=== PATIENT | female | born 1990 | race Caucasian/White ===

== ENCOUNTER 2018-05-19 08:00 | Inpatient (IN) | payer MEDICARE, OTHER ==
[2018-05-13 14:55] VITALS: BMI 47.2
--- NOTE | 2018-05-19 09:10 | HP ---
Admitting History and Physical - Admission Chief Complaint: Morbid obesity History of Present Illness: Morbid obesity History Source: Patient Limitations to Obtaining History: No Limitations - Past Medical History ...LMP Comment: 05/07/18 ...: No - Past Surgical History Past Surgical History: Yes: Cholecystectomy - Smoking History Smoking history: Never smoked Have you smoked in the past 12 months: No - Alcohol/Substance Use Hx Alcohol Use: No Home Medications - Allergies Allergies/Adverse Reactions: Allergies Allergy/AdvReac Type Severity Reaction Status Date / Time No Known Allergies Allergy Verified 05/19/18 08:53 - Home Medications Home Medications: Ambulatory Orders Albuterol Sulfate Inhaler - [Ventolin Hfa Inhaler -] 2 inh PO Q6H PRN 05/13/18 Famotidine [Pepcid] 20 mg PO BID #60 tablet 05/19/18 Oxycodone HCl/Acetaminophen [Percocet 5-325 mg Tablet] 1 - 2 tab PO Q6H #28 tab MDD 4 05/19/18 Family Disease History - Family Disease History Family History: Denies Review of Systems - Review of Systems Constitutional: denies: Chills, Fever HENT: reports: No Symptoms Neck: reports: No Symptoms Cardiovascular: reports: No Symptoms Respiratory: reports: No Symptoms Gastrointestinal: reports: No Symptoms Neurological: reports: No Symptoms Pain Intensity: 0 Physical Examination Vital Signs: Vital Signs Temperature 97.6 F 05/19/18 08:28 Pulse Rate 78 05/19/18 08:28 Respiratory Rate 16 05/19/18 08:28 Blood Pressure 120/67 05/19/18 08:28 O2 Sat by Pulse Oximetry (%) 97 05/19/18 08:33 Constitutional: Yes: Calm HENT: Yes: WNL Neck: Yes: WNL Cardiovascular: Yes: WNL Respiratory: Yes: Regular Gastrointestinal: Yes: Soft, Abdomen, Obese. No: Tenderness Neurological: Yes: Alert, Oriented Problem List - Problems (1) Morbid obesity due to excess calories Code(s): E66.01 - MORBID (SEVERE) OBESITY DUE TO EXCESS CALORIES (2) BMI 45.0-49.9, adult Code(s): Z68.42 - BODY MASS INDEX (BMI) 45.0-49.9, ADULT Assessment/Plan Laparoscopic possible open vertical sleeve gastrectomy
[2018-05-19] MEDS ORDERED: ACETAMINOPHEN INJECTION 100 ML IVPB ONE (09:18)
[2018-05-19] MEDS ORDERED: MIDAZOLAM HCL 2 MG/2 ML SINGLE DOSE VIAL ONE (09:18)
[2018-05-19] MEDS ORDERED: PROPOFOL 20 ML ONE ×2 (09:23→09:24)
[2018-05-19] MEDS ORDERED: ROCURONIUM BROMIDE 50 MG/5 ML VIAL ONE (09:23)
[2018-05-19] MEDS ORDERED: SUCCINYLCHOLINE CHLORIDE 200 MG/10 ML VIAL ONE (09:23)
[2018-05-19] MEDS ORDERED: ceFAZolin SODIUM 1 GM VIAL ONE (09:47)
[2018-05-19] MEDS ORDERED: DEXAMETHASONE SOD PHOSPHATE 4 MG/1 ML VIAL ONE (09:47)
[2018-05-19] MEDS ORDERED: ONDANSETRON 4 MG/2 ML VIAL ONE (09:47)
[2018-05-19] MEDS ORDERED: NEOSTIGMINE METHYLSULFATE 0.5 MG/ML - 10 ML MDV ONE (10:56)
[2018-05-19] MEDS ORDERED: GLYCOPYRROLATE 0.2 MG/1 ML VIAL ONE ×2 (10:56)
[2018-05-19] MEDS ORDERED: ONDANSETRON 4 MG/2 ML VIAL IVPUSH PRN (10:56)
[2018-05-19] MEDS ORDERED: BUPIVACAINE HCL/PF 2.5 MG/ML - 30 ML VIAL IJ ONE (10:57)
[2018-05-19] MEDS ORDERED: HYDROmorphone HCL/PF 1 MG/ML AMP ONE (11:00)
[2018-05-19] MEDS ORDERED: LACTATED RINGERS SOLUTION 1,000 ML IV SCH (11:00)
[2018-05-19] MEDS ORDERED: HYDROmorphone HCL CARPU-JECT 2 MG/1 ML DISP.SYRIN IVPB PRN (11:09)
[2018-05-19] MEDS ORDERED: ALBUTEROL SO4 8 GM HFA INHALER IH PRN (11:13)
--- NOTE | 2018-05-19 11:13 | OP ---
Operative Note - Note: Operative Date: 05/19/18 Pre-Operative Diagnosis: Morbid obesity. BMI 47.3 Operation: Laparoscopic vertical sleeve gastrectomy. Laparoscopic wedge liver biopsy Post-Operative Diagnosis: Other (Same as well as hepatomegaly) Surgeon: Jorge Luis Coffey [employer] Controls Assembler: Jarek Riddle Anesthesia: General Specimens Removed: Greater curvature of stomach. Liver biopsy Estimated Blood Loss (mls): 30 Drains & Tubes with Location: 36 fr Bougie Operative Report Dictated: Yes
[2018-05-19] MEDS ORDERED: ALBUTEROL SO4 0.083% IH SOL 2.5 MG/3 ML VIAL.NEB. NEB ONE (11:24)
[2018-05-19] MEDS ORDERED: FAMOTIDINE 20 MG/50 ML IVPB 20 MG/50 ML MG IVPB ONE (11:44)
[2018-05-19] MEDS ORDERED: METOCLOPRAMIDE HCL INJECTION 10 MG/2 ML VIAL IVPUSH ONE (11:50)
[2018-05-19] MEDS ORDERED: ALBUTEROL SO4 8 GM HFA INHALER IH ONE (11:55)
[2018-05-19] MEDS ORDERED: FAMOTIDINE 20 MG PREMIXED IVPB IVPB ONE (11:58)
[2018-05-19 12:06] LABS: HEMATOCRIT 34.4 % (32.4-45.2); HEMOGLOBIN 11.3 GM/dl (10.7-15.3); MCHC 32.8 g/dl (32.0-36.0); MEAN CELL VOLUME 88.6 fl (80-96); MEAN PLT VOLUME 9.6 fl (7.5-11.1); PLATELET COUNT 307 K/MM3 (134-434); RBC 3.88 M/mm3 (3.60-5.2); RDW 13.3 % (11.6-15.6); WHITE BLOOD COUNT 12.6 K/mm3 (4.0-10.8)
[2018-05-19 12:25] LABS: ALBUMIN 3.5 g/dl (3.4-5.0); ALK PHOS 66 U/L (45-117); ANION GAP 11 MMOL/L (8-16); BILIRUBIN,TOTAL 0.5 mg/dl (0.2-1); BLOOD UREA NITROGEN 11 mg/dl (7-18); CALCIUM 8.7 mg/dl (8.5-10); CHLORIDE 102 mmol/L (98-107); CO2 22 mmol/L (21-32); CREATININE 0.6 mg/dl (0.55-1.3); GLUCOSE,RANDOM 111 mg/dl (74-106); POTASSIUM 3.9 mmol/L (3.5-5.1); SGOT/AST 27 U/L (15-37); SGPT/ALT 28 U/L (13-61); SODIUM 135 mmol/L (136-145); TOT PROT 6.7 g/dl (6.4-8.2)
[2018-05-19] MEDS: SODIUM CHLORIDE 1,000 ML IV SCH (13:00)
[2018-05-19] MEDS ORDERED: HYDROmorphone HCL CARPU-JECT 1 MG/1 ML DISP.SYRIN IVPB PRN (14:45)
[2018-05-19] MEDS ORDERED: ACETAMINOPHEN 1000 MG/100 ML VIAL (NON FORMULARY) IVPB PRN (17:00)
[2018-05-19] MEDS: METOCLOPRAMIDE HCL INJECTION 10 MG/2 ML VIAL IVPUSH SCH ×3 (17:00→23:44)
[2018-05-19] MEDS: ACETAMINOPHEN 1000 MG/100 ML VIAL (NON FORMULARY) IVPB SCH ×2 (18:00→23:44)
[2018-05-19] MEDS: ONDANSETRON 4 MG/2 ML VIAL IVPUSH SCH ×3 (19:00→22:02)
--- NOTE | 2018-05-19 20:32 | SPEC ---
DATE OF OPERATION: 05/19/2018 SURGEON: Jorge Luis Coffey MD VP PLATFORMS: Jarek Riddle MD PREOPERATIVE DIAGNOSES: 1. Morbid obesity. 2. Body mass index 47.3. POSTOPERATIVE DIAGNOSES: 1. Morbid obesity. 2. Body mass index 47.3. 3. Hepatomegaly. PROCEDURES: 1. Diagnostic laparoscopy. 2. Laparoscopic vertical sleeve gastrectomy. 3. Laparoscopic wedge liver biopsy. SPECIMENS: 1. Greater curvature of the stomach. 2. Liver biopsy. ESTIMATED BLOOD LOSS: 30 mL. DRAINS: None. ANESTHESIA: GET. BOUGIE SIZE: 36-Irish. REASON FOR PROCEDURE: This is a 28-year-old female who presents to the office for weight loss options. After describing different options, she decided to proceed with a laparoscopic, possible open, vertical sleeve gastrectomy. RISKS AND BENEFITS: After describing the different options for weight loss management, the patient decided to proceed with a laparoscopic, possible open vertical sleeve gastrectomy. The patient was seen by the respective subspecialties and cleared for surgery. The risks and benefits of the procedure were explained. These included bleeding, infection, hernia, WA, DVT, PE, injury to surrounding structures including the liver, colon, bowel, spleen, esophagus, vessel injury, nerve injury, weight regain, gastric leak, staple line leak, sleeve leak, obstruction, vitamin deficiency, hair loss and as some of the possible complications. The patient understood and signed informed consent. DESCRIPTION OF PROCEDURE: The patient was placed supine on the operating room table. The patient underwent general endotracheal intubation. The arms were brought out at 90 degrees and secured. A footboard was placed and the legs were secured laterally with padding. The abdomen was prepped and draped in the usual sterile fashion. A timeout was performed. An incision was made in the left upper quadrant and a Veress needle inserted. Pneumoperitoneum was established. Subsequently, the Veress needle was removed and a 5-mm trocar was placed under direct visualization with the laparoscope. The laparoscopic camera was then inserted and inspection of the abdominal cavity was performed. An incision was then made in the supraumbilical area and a 15-mm trocar was placed under direct visualization. A 5-mm trocar was then placed in the right upper quadrant and a 5-mm trocar was placed below the left subcostal margin. A stab wound was made in the subxiphoid area and a Lori clamp inserted and removed to dilate the tract. A Bryson liver retractor was inserted. The post was secured at the bedside by the nursing staff. The patient was placed in steep reverse Trendelenburg position and the Bryson liver retractor was used to secure the liver towards the anterior abdominal wall. The pylorus was identified and 6 cm proximal to it, the lesser sac was entered using the LigaSure device. All lateral attachments to the greater curvature of the stomach, including the short gastric vessels, were ligated using the LigaSure device toward the gastrosplenic and gastrophrenic ligaments. Once this was done in its entirety, it was confirmed that all tubes within the nasal or oropharyngeal cavity, including a temperature probe, was removed by Anesthesia. The bougie was then inserted by Anesthesia. Transection of the stomach was then begun staying adjacent to the bougie but away from the angularis. Transection of the stomach was performed near the portion of the stomach where the lesser sac was entered. Two laparoscopic Endo-ARLEEN black elaine were used at this location. Laparoscopic Endo ARLEEN purple staple loads were then used for the remainder of the transection until the greater curvature of the stomach was fully transected. This was done staying close to the bougie. Care was taken to stay away from the angle of His cephalad. The staple line was then inspected. Hemostasis was identified. A leak test was then performed. It was clamped distally to the staple line. Irrigation solution was placed in the left upper quadrant and air was insufflated by Anesthesia into the sleeve. No leaks were identified. No obstruction was identified. This was done through the entirety of the staple line. At this point, the irrigation solution was suctioned and again, hemostasis was noted. A wedge liver biopsy was then performed. The left lobe of the liver was identified and a portion of the edge was grasped. Using electrocautery, a wedge of the liver was excised. This was removed and sent off the field as specimen. Hemostasis at the site of the wedge liver biopsy was attained using electrocautery. The 15-mm supraumbilical trocar was then removed and the greater curvature specimen removed from the site using a sponge stick poon. The specimen was inspected and a Veress needle inserted. The specimen insufflated adequately and no leak was identified. The staple line was noted to be intact. A Solomon-Lani device was then used to close the fascia with a 0 Vicryl suture at the site. Again, hemostasis was noted. The Bryson liver retractor was then removed under direct visualization. Pneumoperitoneum was desufflated and the fascial sutures were secured. Hemostasis was noted at all incision sites and Marcaine was injected at all incision sites. All incision sites were closed using 4-0 Biosyn. Sterile dressings were applied. The patient tolerated the procedure well and was transferred to the recovery room in stable condition. The patient was transferred to telemetry for further monitoring. Claudia [id number] MTDD
[2018-05-19] MEDS: ENOXAPARIN NA (PORCINE) 40 MG/0.4 ML DISP.SYRIN SQ SCH (22:02)
[2018-05-19] MEDS: FAMOTIDINE 20 MG/50 ML IVPB 20 MG/50 ML MG IVPB SCH (22:02)
[2018-05-20] MEDS: ONDANSETRON 4 MG/2 ML VIAL IVPUSH SCH ×4 (01:34→14:10)
[2018-05-20] MEDS: ACETAMINOPHEN 1000 MG/100 ML VIAL (NON FORMULARY) IVPB SCH ×2 (06:04→12:57)
[2018-05-20] MEDS: METOCLOPRAMIDE HCL INJECTION 10 MG/2 ML VIAL IVPUSH SCH ×2 (06:04→12:58)
[2018-05-20 08:43] LABS: ALK PHOS 54 U/L (45-117); ANION GAP 7 MMOL/L (8-16); BILIRUBIN,TOTAL 0.5 mg/dl (0.2-1); BLOOD UREA NITROGEN 9 mg/dl (7-18); CALCIUM 8.5 mg/dl (8.5-10); CHLORIDE 104 mmol/L (98-107); CO2 24 mmol/L (21-32); CREATININE 0.5 mg/dl (0.55-1.3); GLUCOSE,RANDOM 97 mg/dl (74-106); POTASSIUM 3.9 mmol/L (3.5-5.1); SGOT/AST 34 U/L (15-37); SGPT/ALT 34 U/L (13-61); SODIUM 135 mmol/L (136-145); TOT PROT 6.1 g/dl (6.4-8.2)
[2018-05-20 08:57] LABS: HEMATOCRIT 32.4 % (32.4-45.2); HEMOGLOBIN 10.9 GM/dl (10.7-15.3); MCH 29.8 pg (25.7-33.7); MCHC 33.6 g/dl (32.0-36.0); MEAN CELL VOLUME 88.6 fl (80-96); MEAN PLT VOLUME 9.7 fl (7.5-11.1); PLATELET COUNT 254 K/MM3 (134-434); RBC 3.66 M/mm3 (3.60-5.2); RDW 13.1 % (11.6-15.6); WHITE BLOOD COUNT 13.8 K/mm3 (4.0-10.8)
[2018-05-20] MEDS: FAMOTIDINE 20 MG/50 ML IVPB 20 MG/50 ML MG IVPB SCH (10:33)
[2018-05-20] MEDS: ENOXAPARIN NA (PORCINE) 40 MG/0.4 ML DISP.SYRIN SQ SCH (10:33)
[2018-05-20] MEDS: SODIUM CHLORIDE 1,000 ML IV SCH (11:30)
[2018-05-20] MEDS ORDERED: oxyCODONE HCL 5 MG TABLET PO PRN (15:09)
[2018-05-20] MEDS ORDERED: SODIUM CHLORIDE 1,000 ML IV SCH (15:15)
--- NOTE | 2018-05-20 17:38 | PN ---
Progress Note (short form) - Note Progress Note: POD 1 Laparoscopic vertical sleeve gastrectomy, wedge liver biopsy Pain controlled No nausea Vital Signs Period Temp Pulse Resp BP Sys/Zuñiga Pulse Ox Last 24 Hr 98.5 F-98.9 F 65-83 17-19 116-145/59-76 99-100 Abd soft CBC,CMP WBC 13.8 K/mm3 (4.0-10.8) H 05/20/18 07:00 RBC 3.66 M/mm3 (3.60-5.2) 05/20/18 07:00 Hgb 10.9 GM/dl (10.7-15.3) 05/20/18 07:00 Hct 32.4 % (32.4-45.2) 05/20/18 07:00 MCV 88.6 fl (80-96) 05/20/18 07:00 MCH 29.8 pg (25.7-33.7) 05/20/18 07:00 MCHC 33.6 g/dl (32.0-36.0) 05/20/18 07:00 RDW 13.1 % (11.6-15.6) 05/20/18 07:00 Plt Count 254 K/MM3 (134-434) 05/20/18 07:00 MPV 9.7 fl (7.5-11.1) 05/20/18 07:00 Sodium 135 mmol/L (136-145) L 05/20/18 07:00 Potassium 3.9 mmol/L (3.5-5.1) 05/20/18 07:00 Chloride 104 mmol/L (98-107) 05/20/18 07:00 Carbon Dioxide 24 mmol/L (21-32) 05/20/18 07:00 Anion Gap 7 MMOL/L (8-16) L 05/20/18 07:00 BUN 9 mg/dl (7-18) 05/20/18 07:00 Creatinine 0.5 mg/dl (0.55-1.3) L 05/20/18 07:00 Creat Clearance w eGFR > 60 (>60) 05/20/18 07:00 Random Glucose 97 mg/dl (74-106) 05/20/18 07:00 Calcium 8.5 mg/dl (8.5-10) 05/20/18 07:00 Total Bilirubin 0.5 mg/dl (0.2-1) 05/20/18 07:00 AST 34 U/L (15-37) 05/20/18 07:00 ALT 34 U/L (13-61) 05/20/18 07:00 Alkaline Phosphatase 54 U/L (45-117) D 05/20/18 07:00 Total Protein 6.1 g/dl (6.4-8.2) L 05/20/18 07:00 Albumin 3.0 g/dl (3.4-5.0) L 05/20/18 07:00 UGI: no leak/obstruction Clears Discharge home Problem List - Problems (1) Morbid obesity due to excess calories Code(s): E66.01 - MORBID (SEVERE) OBESITY DUE TO EXCESS CALORIES (2) BMI 45.0-49.9, adult Code(s): Z68.42 - BODY MASS INDEX (BMI) 45.0-49.9, ADULT
[2018-05-20 17:51] VITALS: TEMP 98
[2018-05-20 17:52] VITALS: BP 136/74; PULSE 78
--- NOTE | 2018-05-21 14:16 | PATH ---
Surgical Pathology Report Patient Name: AJ STEVE Med. Rec. #: [id number] /Age/Gender: 1990 (Age: 28) / F Account: [id number] Location: [facility] MED-SURG Taken: 05/19/2018 Received: 05/19/2018 Reported: 05/21/2018 Physicians: Jorge Luis Coffey M.D. Specimen(s) Received A: PARTIAL STOMACH B: LIVER BIOPSY Clinical History Morbid obesity Final Diagnosis A. PARTIAL STOMACH, LAPAROSCOPIC VERTICAL SLEEVE GASTRECTOMY: PORTION OF STOMACH WITH MILD CHRONIC GASTRITIS. IMMUNOHISTOCHEMICAL STAIN FOR H. PYLORI IS NEGATIVE. B. LIVER, BIOPSY: LIVER PARENCHYMA WITH MINIMAL STEATOSIS (~5%). NO INCREASE IN IRON AND FIBROSIS ON PERFORMED SPECIAL STAINS (IRON AND TRICHROME). Electronically Signed Carissa Simmons M.D. Gross Description A. Received in formalin, labeled "partial stomach," is a 98 gram, 19.5 x 3.5 x 2.5 cm. portion of stomach with a stapled margin of resection. The serosa is weber-brown with minimal attached fat. The mucosa is weber-pink with normal folds. No mucosal masses are identified. Parquet [employer] Layer'S Helper sections are submitted in one cassette. B. Received in formalin labeled "liver biopsy," is a 4.2 x 1.7 x 1.3 cm weber, irregular portion of soft tissue, consistent with a liver biopsy. Parquet Floor Layer'S Helper sections are submitted in one cassette. 05/20/201805/20/2018
== END 2018-05-20 17:30 | disposition home or self-care (01) | DRG 621 ==
LOC: FM/S 08:06
PROVIDERS: ADMIT Surgery; ATTEND Surgery
PROC: 0DB64Z3 Excision of Stomach, Percutaneous Endoscopic Approach, Vertical (ICD-10-PCS; principal; 2018-05-19 10:12)
PROC: 0FD Hepatobiliary System and Pancreas, Extraction (ICD-10-PCS; 2018-05-19 10:12)
DX: E66.01 Morbid (severe) obesity due to excess calories (principal); Z68.42 Body mass index [BMI] 45.0-49.9, adult; R16.0 Hepatomegaly, not elsewhere classified
CPT/HCPCS: 36415; 74241-TC-FY; 80053; 84703; 85027; 88305-TC; 94760; J0131; J7030

== ENCOUNTER 2020-07-10 18:52 | Emergency (ER) | payer MEDICARE, OTHER ==
[2020-07-10 19:17] VITALS: BP 106/66; PULSE 66; TEMP 98.6; BMI 23.5
== END 2020-07-10 19:35 | disposition home or self-care (01) ==
LOC: JER 18:52
DX: M54.2 Cervicalgia (principal)
CPT/HCPCS: 99281-25